=== PATIENT | female | born 1960 | race Hispanic/Latino ===

== ENCOUNTER → 2022-12-11 | Day surgery (SDC) | payer BC, OTHER ==
[~2022-12-11] MED LIST: GLUCAGON FOR INJ 1 MG VIAL ONE; LIDOCAINE HCL 2% LOCAL INJ 5 ML SDV VIAL INJ ONE; MIDAZOLAM HCL 2 MG/2 ML VIAL ONE; PROPOFOL IV EMULSION 10 MG/ML 20 ML VIAL ONE
[2022-12-11 14:00] VITALS: BP 120/71
== END | disposition home or self-care (01) ==
LOC: OR 10:36
PROVIDERS: ATTEND Internal Medicine Gastroenterology
DX: K29.50 Unspecified chronic gastritis without bleeding (principal); D12.8 Benign neoplasm of rectum; B96.81 Helicobacter pylori [H. pylori] as the cause of diseases classified elsewhere; K20.90 Esophagitis, unspecified without bleeding; K62.5 Hemorrhage of anus and rectum; K59.09 Other constipation; K64.8 Other hemorrhoids; Z88.8 Allergy status to other drugs, medicaments and biological substances; Z01.810 Encounter for preprocedural cardiovascular examination; Z68.27 Body mass index [BMI] 27.0-27.9, adult; Z86.16 Personal history of COVID-19; Z86.19 Personal history of other infectious and parasitic diseases
CPT/HCPCS: 43239; 45384; 93005; J1610; J2001; J2250

== ENCOUNTER → 2023-01-22 | Day surgery (SDC) | payer OTHER ==
[~2023-01-22] MED LIST changes: +BENADRYL25 M1 PO; +FENTANYL CITRATE/PF 100MCG/2 ML INJ ONE; -GLUCAGON FOR INJ 1 MG VIAL ONE; +HYOSCYAMINE SULFATE 0.5 MG/ML INJ ONE; +LACTATED RINGER'S 1,000 ML ONE; +MELATONIN GUMMIES PO; +PANTOPRAZOLE SO40 MG PO
[2023-01-22 11:55] VITALS: BP 135/72
== END | disposition home or self-care (01) ==
LOC: OR 09:32
PROVIDERS: ATTEND Internal Medicine Gastroenterology
DX: K59.09 Other constipation (principal); D12.2 Benign neoplasm of ascending colon; D12.5 Benign neoplasm of sigmoid colon; K64.8 Other hemorrhoids; K29.60 Other gastritis without bleeding; A04.8 Other specified bacterial intestinal infections; Z71.3 Dietary counseling and surveillance; Z71.89 Other specified counseling; Z88.8 Allergy status to other drugs, medicaments and biological substances; Z86.16 Personal history of COVID-19
CPT/HCPCS: 45385; J1980; J2001; J2250; J2704; J3010; J7121; 45378